=== PATIENT | male | born 1950 | race Hispanic/Latino ===

== ENCOUNTER 2017-01-03 16:25 | Inpatient (IN) | payer MEDICARE, OTHER ==
[2017-01-03 16:34] VITALS: BMI 20.7
[2017-01-03] MEDS ORDERED: Sodium Chloride 0.9% 1,000 ML IV STA ×3 (17:02→22:16)
--- NOTE | 2017-01-03 17:11 | ED PDOC ---
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 Patient states his symptoms worsened today causing him to come in for further evaluation. Patient reports sleeping all day which is unlike him and feeling very weak and lightheaded causing him to almost fall when walking to the bathroom. Patient currently notes mild dizziness and chronic pain to the right hip and sacral area (due to the cancer). Patient reports taking Methadone prior to arrival, with mild relief. Patient denies any injuries, loss of consciousness, headache, visual changes, fever, chills, diarrhea, abdominal pain , chest pain, shortness of breath or any other complaints. He notes he was recently discharged form [facility] on 11/22/16. PMD: Dr. Mera Oncologist: Cyndy Allen from [facility] Time/Duration: Other (few days) Symptom Course: Worsening (today) Quality: Other Context: Home Past Medical History - Provider Review Nursing Documentation Reviewed: Yes - Infectious Disease Hx of Infectious Diseases: None - Cardiac Hx Cardiac Disorders: Yes Other/Comment: 3 stents in heart - Pulmonary Hx Respiratory Disorders: No - Neurological Hx Neurological Disorder: No - HEENT Hx HEENT Disorder: No - Renal Hx Renal Disorder: Yes Other/Comment: wears condom cath at night due to NEOBLADDER - Endocrine/Metabolic Hx Endocrine Disorders: No - Hematological/Oncological Hx Blood Disorders: Yes Hx Cancer: Yes (bladder CA with mets to bone/liver) - Integumentary Hx Dermatological Disorder: No - Musculoskeletal/Rheumatological Hx Musculoskeletal Disorders: Yes Other/Comment: CANCER METS TO BONE - Gastrointestinal Hx Gastrointestinal Disorders: Yes Hx Gastroesophageal Reflux: Yes Other/Comment: CANCER METS TO LIVER - Genitourinary/Gynecological Hx Genitourinary Disorders: No - Psychiatric Hx Psychophysiologic Disorder: No Hx Substance Use: No - Surgical History Hx Orthopedic Surgery: Yes (b.l knees) Other/Comment: R chest port. NEOBLADDER sx after cystectomy - Anesthesia Hx Anesthesia: Yes Hx Anesthesia Reactions: No Family/Social History - Physician Review Nursing Documentation Reviewed: Yes Family/Social History: No Known Family HX Smoking Status: Never Smoked Hx Alcohol Use: No Hx Substance Use: No Allergies/Home Meds Allergies/Adverse Reactions: Allergies No Known Allergies Allergy (Verified 01/03/17 16:34) Home Medications: Home Meds Medication Instructions Recorded Confirmed Aspirin [Adult Low Dose Aspirin EC] 1 tab PO DAILY 01/03/17 01/03/17 Atorvastatin Calcium [Lipitor] 1 tab PO DAILY 01/03/17 01/03/17 Bisacodyl [Correctol] 10 mg RC DAILY 01/03/17 01/03/17 Dexamethasone [Decadron] 4 mg PO TID 01/03/17 01/03/17 Enoxaparin [Lovenox] 100 mg SC DAILY 01/03/17 01/03/17 Esomeprazole Sodium [Nexium I.v] 40 mg PO DAILY 01/03/17 01/03/17 HYDROmorphone [Dilaudid] 4 mg PO Q4H 01/03/17 01/03/17 HYDROmorphone [Dilaudid] 8 mg PO Q4H 01/03/17 01/03/17 Lactulose [Generlac] 30 ml PO Q6H 01/03/17 01/03/17 Methadone [Methadone] 5 mg PO BID 01/03/17 01/03/17 Methylphenidate HCl [Ritalin] 1 tab PO BID 01/03/17 01/03/17 Ondansetron HCl [Zofran] 8 mg PO TID 01/03/17 01/03/17 Polyethylene Glycol 3350 [Miralax] 17 gm PO DAILY 01/03/17 01/03/17 Sennosides [Senna] 1 tab PO DAILY 01/03/17 01/03/17 Review of Systems - Physician Review All systems were reviewed & negative as marked: Yes - Review of Systems Constitutional: Fatigue. absent: Fevers, Night Sweats Eyes: absent: Vision Changes Respiratory: absent: SOB Cardiovascular: absent: Chest Pain Gastrointestinal: Nausea, Vomiting. absent: Abdominal Pain, Diarrhea Musculoskeletal: Other (Chronic pain to right hip sacral area, caused by cancer) Neurological: Dizziness. absent: Headache Physical Exam Vital Signs Reviewed: Yes Vital Signs Temp Pulse Resp BP Pulse Ox 01/03/17 16:32 98.1 F 100 H 20 99/64 L 95 Temperature: Afebrile Blood Pressure: Hypotensive Pulse: Tachycardic Respiratory Rate: Normal Appearance: Positive for: Cachectic Mental Status: Positive for: other (weak, drowsy but easily arousable) - Systems Exam Head: Present: Atraumatic, Normocephalic Pupils: Present: PERRL Extroacular Muscles: Present: EOMI Conjunctiva: Present: Normal Mouth: Present: Moist Mucous Membranes Neck: Present: Normal Range of Motion Respiratory/Chest: Present: Clear to Auscultation, Good Air Exchange. No: Respiratory Distress, Accessory Muscle Use Cardiovascular: Present: Regular Rate and Rhythm, Normal S1, S2. No: Murmurs Abdomen: Present: Normal Bowel Sounds. No: Tenderness, Distention, Peritoneal Signs Genitourinary Male: Present: Other (lagunas bag in place, yellow urine noted) Back: Present: Normal Inspection Upper Extremity: Present: Normal Inspection. No: Cyanosis, Edema Lower Extremity: Present: NORMAL PULSES, Tenderness (Right sacral area and hip tenderness, worse with movement). No: Edema, CALF TENDERNESS Neurological: Present: GCS=15, CN II-XII Intact, Speech Normal Skin: Present: Warm, Dry, Normal Color. No: Rashes Psychiatric: Present: Oriented x 3, Other (drowsy but easily arousable and answers questions appropriately) Medical Decision Making ED Course and Treatment: 01/03/17 17:11 Impression: A 66 year old male with persistent nausea and vomiting. Patient notes mild dizziness and chronic pain to right hip sacral area. Differential Diagnosis included but are not limited to: Hypovolemia/near syncope secondary to Sepsis vs. Cardiac vs. Dehydration vs. Failure to Thrive Plan: -- Chest xray -- EKG -- Labs -- Blood and Urine culture -- Urinalysis -- Zorfan and IV fluids -- Reassess and disposition Progress Notes: Family requests transfer to [facility]. 01/03/17 18:42 I p[address] their PMD Dr. Cyndy Hendrix from [facility] [place] but have not received a call back. and daughter agree at this point to admit to [place] under Dr. Solis's who admits under Dr. English. Blood pressure is improving at 100/61. Patient is comfortable. I discussed this case with Dr. English who will accept the case to Telemetry. 01/03/17 18:53 I received a call from Dr. Tomlinson, covering for Dr. Cyndy Hendrix, [facility]. He will be returning the call with a plan for transfer. He needs to speak to Dr. Hendrix. 01/03/17 18:[address] Jansen to f/u call back from Dr. Tomlinson for possible transfer to [facility]. - Critical Care Critical Care Minutes: 30 minutes - Lab Interpretations Lab Results: 01/03/17 17:50 01/03/17 17:50 Lab Results 01/03/17 18:05: Urine Color Yellow, Urine Appearance Sl cloudy, Urine pH 6.5, Ur Specific [place] 1.015, Urine Protein 30 H, Urine Glucose (UA) Negative, Urine Ketones Negative, Urine Blood Moderate H, Urine Nitrate Negative, Urine Bilirubin Negative, Urine Urobilinogen 0.2, Ur Leukocyte Esterase Large H, Urine RBC 10 - 15, Urine WBC Tntc, Urine Bacteria Few 01/03/17 17:55: pO2 71 H, VBG pH 7.41, VBG pCO2 33.0 L, VBG HCO3 20.9 L, VBG Total CO2 21.9 L, VBG O2 Sat (Calc) 95.4 H, VBG Base Excess -2.9 L, VBG Potassium 4.3, Glucose 100, Lactate 2.1, FiO2 21.0, Sodium 137.0, Chloride 107.0 , Venous Blood Potassium 4.3 01/03/17 17:50: Sodium 137, Potassium 4.3, Chloride 106, Carbon Dioxide 21, Anion Gap 14, BUN 54 H, Creatinine 1.5 H, Est GFR ( Amer) 57, Est GFR ( Non-Af Amer) 47, Random Glucose 96, Calcium 9.0, Phosphorus 3.2, Magnesium 1.9, Total Bilirubin 0.8, AST 43, ALT 79 H, Alkaline Phosphatase 570 H, Troponin I 0.02, Total Protein 6.5, Albumin 3.2, Globulin 3.3, Albumin/Globulin Ratio 1.0 L 01/03/17 17:50: PT 11.7, INR 1.08, APTT 30.6 01/03/17 17:50: WBC 13.5 H, RBC 3.83, Hgb 10.5 L, Hct 31.7 L, MCV 82.8, MCH 27.4 , MCHC 33.1, RDW 19.5 H, Plt Count 217, MPV 10.8, Gran % 94.8 H, Lymph % (Auto) 1.5 L, [place] % (Auto) 3.6, Eos % (Auto) 0.0 L, Baso % (Auto) 0.1, Gran # 12.80 H , Lymph # 0.2 L, [place] # 0.5, Eos # 0.0, Baso # 0.01, Neutrophils % (Manual) Pending, Lymphocytes % (Manual) Pending, Monocytes % (Manual) Pending I have reviewed the lab results: Yes - RAD Interpretation Radiology Orders: 01/03/17 17:00 CHEST PORTABLE [RAD] Stat - Medication Orders Current Medication Orders: Acetaminophen (Tylenol 325mg Tab) 650 mg PO Q4H PRN PRN Reason: Fever >100.5 F Piperacillin Sod/Tazobactam Sod (Zosyn 4.5 Gm In Ns 100ml) 4.5 gm in 100 mls @ 200 mls/hr IVPB STAT STA PRN Reason: Protocol Stop: 01/03/17 18:47 Vancomycin HCl (Vancomycin 1gm) 1 gm in 250 mls @ 167 mls/hr IVPB STAT STA PRN Reason: Protocol Stop: 01/03/17 20:00 Sodium Chloride (Sodium Chloride 0.9%) 1,000 mls @ 999 mls/hr IV .Q1H1M STA Stop: 01/03/17 19:38 Ondansetron HCl (Zofran Inj) 4 mg IVP Q4H PRN PRN Reason: Nausea/Vomiting Discontinued Medications Sodium Chloride (Sodium Chloride 0.9%) 1,000 mls @ 999 mls/hr IV .Q1H1M STA Stop: 01/03/17 18:02 Last Admin: 01/03/17 18:03 Dose: 999 mls/hr Ondansetron HCl (Zofran Inj) 4 mg IVP STAT STA Stop: 01/03/17 17:04 Last Admin: 01/03/17 18:03 Dose: 4 mg - Scribe Statement The provider has reviewed the documentation as recorded by the Scribe Paty Ocampo Provider John Attestation: All medical record entries made by the Anaidibvenkatesh were at my direction and personally dictated by me. I have reviewed the chart and agree that the record accurately reflects my personal performance of the history, physical exam, medical decision making, and the department course for this patient. I have also personally directed, reviewed, and agree with the discharge instructions and disposition. Disposition/Present on Arrival - Present on Arrival Any Indicators Present on Arrival: No History of DVT/PE: No History of Uncontrolled Diabetes: No Urinary Catheter: No History of Decub. Ulcer: No History Surgical Site Infection Following: None - Disposition Have Diagnosis and Disposition been Completed?: Yes Diagnosis: Sepsis, UTI (urinary tract infection) Disposition Time: 18:59 Condition: SERIOUS Discharge Instructions (ExitCare): Sepsis (ED) Referrals: PCP,NO [Primary Care Provider] - Follow up with primary Forms: [facility] (Greek)
[2017-01-03 17:59] LABS: VENOUS BLOOD GAS BASE EXCESS -2.9 mmol/L (0.0-2.0); VENOUS BLOOD PH 7.41 (7.32-7.43)
[2017-01-03 18:04] LABS: BASO # 0.01 K/mm3 (0.0-2.0); BASO % 0.1 % (0.0-3.0); GRAN % 94.8 % (50.0-68.0); HEMATOCRIT 31.7 % (42.0-52.0); LYMPH # 0.2 (1.2-3.4); LYMPH % 1.5 % (22.0-35.0); MEAN CELL VOLUME 82.8 fl (80.0-105.0); MEAN CORPUSCULAR HEMOGLOBIN 27.4 pg (25.0-35.0); MEAN CORPUSCULAR HGB CONC 33.1 g/dl (31.0-37.0); MEAN PLATELET VOLUME 10.8 fl (7.0-11.0); MONO # 0.5 (0.1-0.6); MONO % 3.6 % (1.0-6.0); PLATELET COUNT 217 10^3/uL (120.0-450.0); RED CELL DISTRIBUTION WIDTH 19.5 % (11.5-14.5); WHITE BLOOD COUNT 13.5 10^3/ul (4.5-11.0)
[2017-01-03 18:13] LABS: BILIRUBIN,TOTAL 0.8 mg/dL (0.2-1.3); MAGNESIUM 1.9 mg/dL (1.7-2.2); PHOSPHOROUS 3.2 mg/dL (2.5-4.5); POTASSIUM 4.3 mmol/L (3.6-5.0); TOTAL PROTEIN 6.5 g/dL (5.8-8.3)
[2017-01-03] MEDS ORDERED: Piperacill/Tazo 4.5gm in NS 4.5 GM/100 ML BAG IVPB STA (18:18)
[2017-01-03 18:23] LABS: PH,URINE 6.5 (4.7-8.0); URINE BILIRUBIN NEGATIVE (NEGATIVE); URINE BLOOD MODERATE (NEGATIVE); URINE GLUCOSE (UA) NEGATIVE (NEGATIVE); URINE KETONE NEGATIVE (NEGATIVE); URINE LEUKOCYTE ESTERASE LARGE Leu/uL (NEGATIVE); URINE PROTEIN 30 mg/dL (<30 mg/dL); URINE UROBILINOGEN 0.2 E.U./dL (<1 E.U./dL)
[2017-01-03 18:24] LABS: TROPONIN I 0.02 ng/mL
[2017-01-03 18:30] LABS: INR 1.08 (0.93-1.08); PARTIAL THROMBOPLASTIN TIME 30.6 Seconds (23.7-30.8)
[2017-01-03] MEDS ORDERED: Vancomycin 1gm in NS 250ml 1 GM/250 ML BAG IVPB STA (18:31)
[2017-01-03 18:33] LABS: URINE APPEARANCE SL CLOUDY (CLEAR); URINE COLOR YELLOW (YELLOW)
[2017-01-03 18:37] LABS: URINE WBC TNTC /hpf (0-6)
[2017-01-03 18:38] LABS: URINE BACTERIA FEW (NEG)
[2017-01-03 18:59] LABS: BAND 1 % (0-2); NEUTROPHIL 96 % (50.0-70.0)
[2017-01-03 19:00] LABS: ANISOCYTOSIS SLIGHT; HYPOCHROMIA SLIGHT; OVALOCYTES SLIGHT; PLATELET ESTIMATE NORMAL (NORMAL)
--- NOTE | 2017-01-03 19:04 | RAD ---
HISTORY: Sepsis Patient . Technique: Single view portable semi erect @ 17:19. COMPARISON: No prior. FINDINGS: LUNGS: No active pulmonary disease. PLEURA: No significant pleural effusion identified, no pneumothorax apparent. CARDIOVASCULAR: Normal. OSSEOUS STRUCTURES: No significant abnormalities. VISUALIZED UPPER ABDOMEN: Normal. OTHER FINDINGS: None. IMPRESSION: No active disease.
--- NOTE | 2017-01-03 19:48 | ED PDOC ---
Physical Exam Vital Signs Temp Pulse Resp BP Pulse Ox 01/03/17 22:40 62 18 101/65 97 01/03/17 20:26 98 F 01/03/17 20:25 65 18 101/62 99 01/03/17 18:40 98.0 F 80 18 103/65 95 01/03/17 16:32 98.1 F 100 H 20 99/64 L 95 Temperature: Afebrile Blood Pressure: Normal Pulse: Tachycardic Respiratory Rate: Normal Appearance: Positive for: Non-Toxic Pain Distress: None Mental Status: Positive for: Alert and Oriented X 3 Medical Decision Making ED Course and Treatment: 01/03/17 19:00 Case endorsed to me by , pending disposition. Patient is a 66 year old male who presents to the emergency department complaining of nausea and vomiting for past few days. discussed the case with from [facility], who will call back regarding the treatment plan. 01/03/17 21:35 I discussed the case with patient's oncologist who recommends to admit patient to [facility]. Discussed case with who is aware and accepts patient under his service. Case discussed with Information Assurance Officer, , who will evaluate patient for ICU admit. 01/03/17 22:13 Patient evaluated by exhauster engineer, recommends that patient is not ICU candidate. Will admit patient to telemetry for Sepsis. - Lab Interpretations Lab Results: 01/03/17 17:50 01/03/17 17:50 Lab Results 01/03/17 20:58: pO2 48, VBG pH 7.28 L, VBG pCO2 45.0, VBG HCO3 21.1, VBG Total CO2 22.5, VBG O2 Sat (Calc) 81.1 H, VBG Base Excess -5.6 L, VBG Potassium 4.2, Glucose 96, Lactate 1.6, FiO2 21.0, Sodium 138.0, Chloride 110.0 H, Venous Blood Potassium 4.2 01/03/17 18:05: Urine Color Yellow, Urine Appearance Sl cloudy, Urine pH 6.5, Ur Specific [place] 1.015, Urine Protein 30 H, Urine Glucose (UA) Negative, Urine Ketones Negative, Urine Blood Moderate H, Urine Nitrate Negative, Urine Bilirubin Negative, Urine Urobilinogen 0.2, Ur Leukocyte Esterase Large H, Urine RBC 10 - 15, Urine WBC Tntc, Urine Bacteria Few 01/03/17 17:55: pO2 71 H, VBG pH 7.41, VBG pCO2 33.0 L, VBG HCO3 20.9 L, VBG Total CO2 21.9 L, VBG O2 Sat (Calc) 95.4 H, VBG Base Excess -2.9 L, VBG Potassium 4.3, Glucose 100, Lactate 2.1, FiO2 21.0, Sodium 137.0, Chloride 107.0 , Venous Blood Potassium 4.3 01/03/17 17:50: Procalcitonin 8.70 H 01/03/17 17:50: Sodium 137, Potassium 4.3, Chloride 106, Carbon Dioxide 21, Anion Gap 14, BUN 54 H, Creatinine 1.5 H, Est GFR ( Amer) 57, Est GFR ( Non-Af Amer) 47, Random Glucose 96, Calcium 9.0, Phosphorus 3.2, Magnesium 1.9, Total Bilirubin 0.8, AST 43, ALT 79 H, Alkaline Phosphatase 570 H, Troponin I 0.02, Total Protein 6.5, Albumin 3.2, Globulin 3.3, Albumin/Globulin Ratio 1.0 L 01/03/17 17:50: PT 11.7, INR 1.08, APTT 30.6 01/03/17 17:50: WBC 13.5 H, RBC 3.83, Hgb 10.5 L, Hct 31.7 L, MCV 82.8, MCH 27.4 , MCHC 33.1, RDW 19.5 H, Plt Count 217, MPV 10.8, Gran % 94.8 H, Lymph % (Auto) 1.5 L, [place] % (Auto) 3.6, Eos % (Auto) 0.0 L, Baso % (Auto) 0.1, Gran # 12.80 H , Lymph # 0.2 L, [place] # 0.5, Eos # 0.0, Baso # 0.01, Neutrophils % (Manual) 96 H , Band Neutrophils % 1, Lymphocytes % (Manual) 2 L, Monocytes % (Manual) 1, Platelet Evaluation Normal, Hypochromasia Slight, Anisocytosis (manual) Slight, Ovalocytes Slight - RAD Interpretation Radiology Orders: 01/03/17 17:00 CHEST PORTABLE [RAD] Stat - Medication Orders Current Medication Orders: Acetaminophen (Tylenol 325mg Tab) 650 mg PO Q4H PRN PRN Reason: Fever >100.5 F Sodium Chloride (Sodium Chloride 0.9%) 1,000 mls @ 100 mls/hr IV .Q10H STA Stop: 01/04/17 08:15 Last Admin: 01/03/17 22:27 Dose: 100 mls/hr Vancomycin HCl (Vancomycin 1gm) 1 gm in 250 mls @ 167 mls/hr IVPB Q12H MARCELO PRN Reason: Protocol Last Admin: 01/03/17 22:35 Dose: Piperacillin Sod/Tazobactam Sod (Zosyn 3.375 In Ns 100ml) 100 mls @ 200 mls/hr IVPB Q6 MARCELO PRN Reason: Protocol Stop: 01/04/17 06:29 Ondansetron HCl (Zofran Inj) 4 mg IVP Q4H PRN PRN Reason: Nausea/Vomiting Discontinued Medications Sodium Chloride (Sodium Chloride 0.9%) 1,000 mls @ 999 mls/hr IV .Q1H1M STA Stop: 01/03/17 18:02 Last Admin: 01/03/17 18:03 Dose: 999 mls/hr Piperacillin Sod/Tazobactam Sod (Zosyn 4.5 Gm In Ns 100ml) 4.5 gm in 100 mls @ 200 mls/hr IVPB STAT STA PRN Reason: Protocol Stop: 01/03/17 18:47 Last Admin: 01/03/17 18:48 Dose: 200 mls/hr Vancomycin HCl (Vancomycin 1gm) 1 gm in 250 mls @ 167 mls/hr IVPB STAT STA PRN Reason: Protocol Stop: 01/03/17 20:00 Last Admin: 01/03/17 19:44 Dose: 167 mls/hr Sodium Chloride (Sodium Chloride 0.9%) 1,000 mls @ 999 mls/hr IV .Q1H1M STA Stop: 01/03/17 19:38 Last Admin: 01/03/17 19:48 Dose: 999 mls/hr Ondansetron HCl (Zofran Inj) 4 mg IVP STAT STA Stop: 01/03/17 17:04 Last Admin: 01/03/17 18:03 Dose: 4 mg Disposition/Present on Arrival - Present on Arrival Any Indicators Present on Arrival: No History of DVT/PE: No History of Uncontrolled Diabetes: No Urinary Catheter: No History of Decub. Ulcer: No History Surgical Site Infection Following: None - Disposition Have Diagnosis and Disposition been Completed?: Yes Diagnosis: Sepsis, UTI (urinary tract infection) Disposition: HOSPITALIZED Disposition Time: 22:15 Patient Problems: Current Active Problems Problem Status Onset Sepsis Acute UTI (urinary tract infection) Acute Condition: SERIOUS
[2017-01-03 21:10] LABS: VENOUS BLOOD GAS BASE EXCESS -5.6 mmol/L (0.0-2.0); VENOUS BLOOD PH 7.28 (7.32-7.43)
[2017-01-03] MEDS: Vancomycin 1gm in NS 250ml 1 GM/250 ML BAG IVPB SCH (22:35)
[2017-01-03] MEDS ORDERED: HYDROmorphone 1 mg/ml ISec IVP PRN (23:01)
--- NOTE | 2017-01-03 23:36 | PCM.SEPTIC ---
Sepsis Progress Note - Reassessment Type Date of Evaluation: 01/03/17 Time of Evaluation: 22:23 Reassessment Type: Non-invasive reassessment - Non Invasive Reassessment Were the most recent vital sign reviewed: Yes Vital Sign (Latest): Temp Pulse Resp BP Pulse Ox 98 F 62 18 101/65 97 01/03/17 20:26 01/03/17 22:40 01/03/17 22:40 01/03/17 22:40 01/03/17 22:40 Cardiovascular: Yes: Regular Rate, Rhythm Respiratory: Yes: Normal Breath Sounds Capillary Refill: Normal (Less than 2 sec) Skin: Warm, Dry
[2017-01-04] MEDS: Piperacillin/Tazobact 3.375 gm 100 ML IVPB SCH ×2 (00:12→05:30)
--- NOTE | 2017-01-04 00:48 | CP.PCM.CON ---
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 Patient reports sleeping all day which is unlike him and feeling very weak and lightheaded. Per he has had previous episodes similar to this however today he is able to take an fluids or his medications. Patient reports lower back pain and mild right sided abdominal pain. He states that the dizziness, and nausea has improved while in the ED. Per patient had 1 episode of diarrhea yesterday. Patient denies any trauma, loss of consciousness , headache, visual changes, fever, chills, in, chest pain, shortness of breath or any other complaints. Patient was recently discharged from [facility] on 11/22/16 for pain, no infection. PMH: bladder cancer with metastasis to hip and liver, anemia. PSH: 3 cardiac stents, right chest port, neobladder sx, s/p cystectomy social hx: denies smoking, alcohol use, medical marijuana use allergy: NKDA PMD: Dr. Mera Oncologist: Cyndy Allen from [facility] Review of Systems - Constitutional Constitutional: Lethargy, Weakness. absent: Fever, Headache - EENT Eyes: absent: Change in Vision Nose/Mouth/Throat: absent: Nasal Congestion, Sore Throat - Cardiovascular Cardiovascular: absent: Chest Pain, Claudication, Dyspnea, Palpitations, Syncope - Respiratory Respiratory: absent: Cough, Dyspnea, Hemoptysis - Gastrointestinal Gastrointestinal: Abdominal Pain (right sided), Diarrhea, Nausea, Vomiting. absent: Constipation - Genitourinary Genitourinary: absent: Change in Urinary Stream, Difficulty Urinating, Dysuria, Hematuria - Musculoskeletal Musculoskeletal: Back Pain. absent: Muscle Weakness, Numbness, Tingling - Integumentary Integumentary: absent: Skin Pain, Skin Ulcer, Swelling, Wounds, Jaundice - Neurological Neurological: Weakness. absent: Dizziness, Numbness, Headaches, Loss of Vision , Syncope - Hematologic/Lymphatic Hematologic: absent: Easy Bleeding, Easy Bruising Past Patient History - Infectious Disease Hx of Infectious Diseases: None - Past Social History Smoking Status: Never Smoked Alcohol: None Drugs: Cannabis - CARDIAC Hx Cardiac Disorders: Yes Hx Hypercholesterolemia: Yes Hx Hypertension: Yes Other/Comment: 3 stents in heart - PULMONARY Hx Respiratory Disorders: No - NEUROLOGICAL Hx Neurological Disorder: No - HEENT Hx HEENT Problems: No - RENAL Hx Chronic Kidney Disease: No - ENDOCRINE/METABOLIC Hx Endocrine Disorders: No - HEMATOLOGICAL/ONCOLOGICAL Hx Blood Disorders: Yes Hx Cancer: Yes (bladder CA with mets to bone/liver) - INTEGUMENTARY Hx Dermatological Problems: No - MUSCULOSKELETAL/RHEUMATOLOGICAL Hx Musculoskeletal Disorders: Yes Hx Falls: Yes - GASTROINTESTINAL Hx Gastrointestinal Disorders: Yes Hx Gastroesophageal Reflux: Yes - GENITOURINARY/GYNECOLOGICAL Hx Genitourinary Disorders: Yes Other/Comment: wears condom cath at night due to NEOBLADDER - PSYCHIATRIC Hx Psychophysiologic Disorder: No Hx Emotional Abuse: No Hx Physical Abuse: No Hx Sexual Abuse: No - SURGICAL HISTORY Hx Surgeries: Yes Hx Orthopedic Surgery: Yes (b.l knees) Other/Comment: R chest port. Badder removed in January 2015. Herniography 2016. NEOBLADDER sx after cystectomy - ANESTHESIA Hx Anesthesia: Yes Hx Anesthesia Reactions: No Meds Allergies/Adverse Reactions: Allergies Allergy/AdvReac Type Severity Reaction Status Date / Time No Known Allergies Allergy Verified 01/03/17 16:34 - Medications Medications: Current Medications Acetaminophen (Tylenol 325mg Tab) 650 mg PO Q4H PRN PRN Reason: Fever >100.5 F Hydromorphone HCl (Dilaudid) 1 mg IVP Q4H PRN PRN Reason: Pain, moderate (4-7) Sodium Chloride (Sodium Chloride 0.9%) 1,000 mls @ 100 mls/hr IV .Q10H STA Stop: 01/04/17 08:15 Last Admin: 01/03/17 22:27 Dose: 100 mls/hr Vancomycin HCl (Vancomycin 1gm) 1 gm in 250 mls @ 167 mls/hr IVPB Q12H MARCELO PRN Reason: Protocol Last Admin: 01/03/17 22:35 Dose: Not Given Piperacillin Sod/Tazobactam Sod (Zosyn 3.375 In Ns 100ml) 100 mls @ 200 mls/hr IVPB Q6 MARCELO PRN Reason: Protocol Stop: 01/04/17 06:29 Last Admin: 01/04/17 00:12 Dose: 200 mls/hr Ondansetron HCl (Zofran Inj) 4 mg IVP Q4H PRN PRN Reason: Nausea/Vomiting Physical Exam - Constitutional Appears: No Acute Distress, Cachectic, Chronically Ill - Head Exam Head Exam: ATRAUMATIC, NORMAL INSPECTION, NORMOCEPHALIC - Eye Exam Eye Exam: EOMI, Normal appearance - ENT Exam ENT Exam: Mucous Membranes Moist - Respiratory Exam Respiratory Exam: Clear to Auscultation Bilateral, NORMAL BREATHING PATTERN. absent: Decreased Breath Sounds, Rales, Rhonchi, Wheezes, Respiratory Distress - Cardiovascular Exam Cardiovascular Exam: REGULAR RHYTHM, +S1, +S2. absent: Tachycardia, Diastolic murmur, Systolic Murmur - GI/Abdominal Exam GI & Abdominal Exam: Normal Bowel Sounds, Soft, Tenderness. absent: Distended, Firm, Guarding - Extremities Exam Extremities exam: Positive for: normal inspection. Negative for: pedal edema - Neurological Exam Neurological exam: Alert, Oriented x3 - Skin Skin Exam: Dry, Intact, Normal Color, Warm Results - Vital Signs Recent Vital Signs: Last Vital Signs Temp 98 F 01/03/17 20:26 Pulse 62 01/03/17 22:40 Resp 18 01/03/17 22:40 BP 101/65 01/03/17 22:40 Pulse Ox 97 01/03/17 22:40 - Labs Result Diagrams: 01/03/17 17:50 01/03/17 17:50 Assessment & Plan - Assessment and Plan (Free Text) Assessment: 66 year old male with PMH of bladder cancer with metastasis to hip and liver, last chemotherapy approximately 2-3 months ago this past September/October, anemia and 3 cardiac stents presents with fatigue, general weakness, nausea and vomiting found to have sepsis secondary to UTI. Vital signs are stable, near baseline, lactate is mildly elevated, repeat is decreased, patient does not require ICU admission at this time. Recommend admission to hospital for continuing treatment , continue IV fluids, and IV antibiotics. Follow up urine cultures. Consider CT abd/pelvis if patient develops fever. <Otis Moody Q - Last Filed: 01/04/17 01:34> Meds - Medications Medications: Current Medications Acetaminophen (Tylenol 325mg Tab) 650 mg PO Q4H PRN PRN Reason: Fever >100.5 F Hydromorphone HCl (Dilaudid) 1 mg IVP Q4H PRN PRN Reason: Pain, moderate (4-7) Sodium Chloride (Sodium Chloride 0.9%) 1,000 mls @ 100 mls/hr IV .Q10H STA Stop: 01/04/17 08:15 Last Admin: 01/03/17 22:27 Dose: 100 mls/hr Vancomycin HCl (Vancomycin 1gm) 1 gm in 250 mls @ 167 mls/hr IVPB Q12H MARCELO PRN Reason: Protocol Last Admin: 01/03/17 22:35 Dose: Not Given Piperacillin Sod/Tazobactam Sod (Zosyn 3.375 In Ns 100ml) 100 mls @ 200 mls/hr IVPB Q6 MARCELO PRN Reason: Protocol Stop: 01/04/17 06:29 Last Admin: 01/04/17 00:12 Dose: 200 mls/hr Ondansetron HCl (Zofran Inj) 4 mg IVP Q4H PRN PRN Reason: Nausea/Vomiting Results - Vital Signs Recent Vital Signs: Last Vital Signs Temp 98.6 F 01/04/17 00:23 Pulse 42 L 01/04/17 00:23 Resp 20 01/04/17 00:23 BP 106/62 01/04/17 00:23 Pulse Ox 97 01/03/17 22:40 - Labs Result Diagrams: 01/03/17 17:50 01/03/17 17:50 Attending/Attestation - Attestation I have personally seen and examined this patient.: Yes I have fully participated in the care of the patient.: Yes I have reviewed all pertinent clinical information: Yes Notes (Text): 01/04/17 01:25 I agree with the above mentioned note and exam by the resident Asked to evaluate the patient for possible ICU admission due to code sepsis. Patient responded appropriately to IV Fluids and IV Abx. Likely septic secondary to acute cystitis; has a neobladder constructed due to bladder cancer. He does not require aggressive ICU level care at this time and is suitable to be admitted to the medical floor with IV fluids and IV antibiotics. Case discussed with Dr. Jansen in the ED labd and images available to me thus far have been reviewed total time of care: 35 minutes
[2017-01-04] MEDS: Pantoprazole 40 mg EC Tab PO SCH (09:41)
[2017-01-04] MEDS: POLYETHYLENE GLYCOL 3350 17 GM/Dose PACKET PO SCH (09:42)
[2017-01-04] MEDS: Enoxaparin 100 mg Syringe SC SCH (09:42)
--- NOTE | 2017-01-04 10:04 | CARD ---
APPROVED REPORT EKG Measurement Heart [id number] CT 180P-7 [id number] <Conclusion> Normal sinus rhythm Left axis deviation
[2017-01-04] MEDS: Vancomycin 1gm in NS 250ml 1 GM/250 ML BAG IVPB SCH ×3 (11:32→22:14)
[2017-01-04] MEDS: Piperacillin/Tazobact 2.25gm 2.25 GM/100 ML BAG IVPB SCH ×2 (14:20→19:08)
--- NOTE | 2017-01-04 18:17 | HP ---
HISTORY OF PRESENT ILLNESS: A 66-year-old white male admitted through the ER with some change in mental status issues and having had urosepsis, chronic renal insufficiency, history of metastatic prostate cancer with bone metastasis, chronic right back and flank pain, on Dilaudid and methadone, and also on stool softeners and cathartics. The patient was admitted and was treated, had drop in his blood pressure and early sepsis syndrome. The patient was treated with IV antibiotics in the ER and transferred to the floor. He is awaiting transfer to [facility] where his oncologist resides, awaiting for a bed to be open. Temperature this morning is 98.1 and blood pressure is 115/61. White count is 13,500. BUN and creatinine are 54 and 1.5, which is stable in his previous and the patient is on IV antibiotics. PHYSICAL EXAMINATION: GENERAL: Shows a poorly-developed cachectic white male in 3/10 pain. VITAL SIGNS: Stable. CHEST: Clear to auscultation. HEART: Reveals sinus rhythm. EXTREMITIES: Without cyanosis, clubbing, or edema. NEUROLOGIC: Grossly intact. UROLOGIC: The patient does urinate on his own, but does use a condom catheter at night because of leaking. He states that his urine have been cloudy in the last several days. IMPRESSION AND PLAN: This is a 66-year-old white male with widely metastatic prostate cancer and urosepsis and change in mental status and chronic renal insufficiency. Da English MD
[2017-01-04] MEDS ORDERED: Vancomycin 1gm in NS 250ml 1 GM/250 ML BAG IVPB SCH (22:15)
[2017-01-05 08:48] LABS: TROPONIN I 0.02 ng/mL
[2017-01-05] MEDS: Enoxaparin 100 mg Syringe SC SCH (10:20)
[2017-01-05] MEDS: Pantoprazole 40 mg EC Tab PO SCH (10:21)
[2017-01-05] MEDS: POLYETHYLENE GLYCOL 3350 17 GM/Dose PACKET PO SCH (10:22)
[2017-01-05] MEDS: cefTRIAXone 1 gm 1 GM/100 ML BAG IVPB SCH (10:22)
[2017-01-05] MEDS: HYDROmorphone 1 mg/ml ISec IVP PRN ×3 (10:57→21:10)
--- NOTE | 2017-01-05 17:03 | CON ---
DATE: 01/05/2017 CONSULTATION INDICATIONS: Sinus bradycardia, history of CAD and stents. HISTORY OF PRESENT ILLNESS: This is a 66-year-old man with metastatic bladder cancer admitted 01/03/2017 with nausea, weakness, vomiting, altered mental status and lightheadedness. He was admitted to telemetry and during the night it was noted to have sinus bradycardia in the 40s and occasionally into the upper 30s. This was when he was nauseous and vomiting. There was no chest pain, shortness of breath, orthopnea, PND, syncope, vertigo, palpitation, edema, claudication, fever, chills, hemoptysis, abdominal pain, diarrhea, or melena. PAST MEDICAL HISTORY: Complex. He has bladder cancer with metastasis to hip and liver. He is under the care of oncology at [facility]. He has had chemotherapy. His planing a new round of possibly experimental chemotherapy. He was recently admitted to the hospital. Bradycardia was evaluated during that admission.and has been evaluated in ths past. He has had coronary artery disease with coronary stents several years ago. He has cystectomy and neobladder created. He has chronic pain and is on around the clock Dilaudid and methadone. There is no history of diabetes, stroke, TIA, or gout. There is no history of myocardial infarction angina or CHF. He has a history of chronic slow heart rates. He recalls having Holter monitors in the recent and remote past. MEDICATION AT THE TIME OF ADMISSION: Include aspirin, Lipitor, Correctol, Decadron, Lovenox, Nexium, Dilaudid, Lactulose, methadone, Ritalin, Zofran, MiraLax, and Senna. ALLERGIES: THERE ARE NO MEDICATIONS ALLERGIES REPORTED. SOCIAL HISTORY: He lives at home with his . He does not smoke. He does not drink alcohol significantly. REVIEW OF SYSTEMS: A 10-point review of systems is otherwise unremarkable except as noted above. PHYSICAL EXAMINATION: GENERAL: He is a well-developed ill appearing male lying in bed, on telemetry, in no acute distress. VITAL SIGNS: Notable for sinus rhythm to sinus bradycardia currently 56 beats per minute. He is afebrile, blood pressure 137/55, respirations 18 to 20, and O2 sat 98%. HEENT: Reveals no neck vein distention, thyromegaly, or carotid bruits. Mucous membranes are moist. Conjunctivae pink. NECK: Supple. LUNGS: Lung wang clear. HEART: Reveals normal first and second heart sounds. ABDOMEN: Soft. EXTREMITIES: Reveal no cyanosis, clubbing, or edema. NEUROLOGIC: Awake, alert, and oriented. SKIN: Warm and dry. No rashes or cellulitis. LABORATORY AND IMAGING: A chest x-ray revealed. No active disease. EKG demonstrates sinus rhythm with a left axis deviation. Heart rate 75 beats per minute. White count 13,500. Hemoglobin 10.5. Hematocrit 31.7. Platelet count 217,000. PT/INR, and PTT normal. Blood gases are noted. Electrolytes, BUN are noted. Creatinine 1.5. Magnesium 1.9. LFTs mildly elevated. CK 67, troponin 0.02 and 0.02. Procalcitonin 8.7. Urinalysis is abnormal. Urine cultures is positive for Klebsiella pneumoniae. Blood cultures x2 are no growth at 24 hours. IMPRESSION: Andrade Gonzalez is a 66-year-old man with advanced metastatic bladder cancer on chronic pain medications with chronic nausea and vomiting worse recently prompting admission with the severe bout of nausea and vomiting related to adjustment in his pain medications last night. During which time sinus bradycardia with heart rate in a 38 to 45 beat per minute, range were noted. PLAN: At this time, he has in sinus rhythm to sinus bradycardia currently 56 beats per minute. He is still has chronic pain. His nausea has improved. His medications are being adjusted and there is plan to transferred to [facility] for further oncologic management and additional chemotherapy possibly on a new protocol as described by the patient and his . I reviewed his orders, there are no negative chronotropic medications. He has long history of bradycardia. He should be observed on telemetry and transferred on a control room agent. If bradycardia worsens and causes symptoms he might be considered for a pacemaker at that time. In the mean time I would avoid Beta-blockers and negative chronotropic medications and try keep is nausea under control with adequate pain control as well. He has a history of coronary artery disease with remote coronary artery stents. There is no evidence of active ischemia or chest pain, and his troponins are negative. His EKG is benign with regards to the ST-segments. I have discussed his case with Dr. English. The patients was present in the room at the time of my visit. Breezy Sorensen MD [facility] # [id number] KEM
[2017-01-06] MEDS: HYDROmorphone 1 mg/ml ISec IVP PRN ×6 (01:17→21:28)
--- NOTE | 2017-01-06 02:14 | PN ---
SUBJECTIVE: This is a 66-year-old white male with history of metastatic bladder cancer, history of stents x2, history of bradycardia in the past. The patient was admitted with urosepsis, change in mental status. The patient has improved as far as his sepsis. He has grown Klebsiella pneumoniae in his urine.. Blood cultures are negative. He is afebrile. Vital signs are stable; however, the patient was nauseous this morning and had dropped in his heart rate down into the mid 30s, which quickly resolved, and he returned up into the 50 to 60 range. Currently, the patient's heart rate is 100. The patient was seen in consultation this morning with Dr. Sorensen. The patient was noted to have had episodes of bradycardia and arrhythmia in the past that was worked up at [facility] approximately 3 weeks ago. Also, had a Holter monitor placed while in [facility] and also at [facility] approximately 2 years ago and also many years ago by Dr. Sorensen, a custom tailor in [place]. The patient is asymptomatic. His blood pressure had not changed during the bradycardia. The patient had no chest pain. He was asymptomatic. He was found to be retching and nauseous and also complaining of persistent right back pain. The patient has been on methadone and Dilaudid, also on Zofran. The methadone was continued. The Dilaudid dose was reduced because of the chance of worsening bradycardia. Also, the Zofran was held and the patient was given Reglan in place of the Zofran for nausea. Family was advised. PHYSICAL EXAMINATION: GENERAL: Shows a well-developed, thin, cachectic white male, in pain approximately 3-5/10. HEART: Bradycardia. No murmurs. CHEST: Clear to auscultation and percussion. ABDOMEN: Benign. EXTREMITIES: Without cyanosis, clubbing, or edema. NEUROLOGIC: Grossly intact. IMPRESSION: Bradycardia in a 66-year-old white male with a history of wildly metastatic bladder cancer on high dose of pain medication found to be nauseous and retching this morning with drops in his heart rate which have returned to normal. PLAN: As above, change medications. Consultation with Cardiology, cardiac enzymes and close monitoring with telemetry. Da English MD [facility] # [id number]
[2017-01-06 07:20] LABS: GRAN # 9.76 (1.4-6.5); GRAN % 93.4 % (50.0-68.0); HEMATOCRIT 25.3 % (42.0-52.0); LYMPH # 0.3 (1.2-3.4); LYMPH % 2.4 % (22.0-35.0); MEAN CELL VOLUME 81.6 fl (80.0-105.0); MEAN CORPUSCULAR HEMOGLOBIN 27.1 pg (25.0-35.0); MEAN CORPUSCULAR HGB CONC 33.2 g/dl (31.0-37.0); MEAN PLATELET VOLUME 10.8 fl (7.0-11.0); MONO # 0.4 (0.1-0.6); MONO % 4.2 % (1.0-6.0); RED CELL DISTRIBUTION WIDTH 19.4 % (11.5-14.5); WHITE BLOOD COUNT 10.5 10^3/ul (4.5-11.0)
--- NOTE | 2017-01-06 08:09 | CP.PCM.PN ---
Subjective - Date & Time of Evaluation Date of Evaluation: 01/06/17 Time of Evaluation: 07:00 - Subjective Subjective: Stable on 2R. He feels better. He still has pain but it is controlled now w/o nausea at the moment. No CP or SOB. V/S noted. RSR/Sinus Jaime with HR low 40's during the night (some high 30's as well). HR 50-60 now. PE: Lungs: clear Cor.: S1S2 Abd.: soft Ext.: no edema Neuro.: alert I/O= 480/1100 H/H = 8.4/25.3 Objective - Vital Signs/Intake and Output Vital Signs (last 24 hours): Temp Pulse Resp BP Pulse Ox 98.4 F 43 L 20 148/68 96 01/06/17 06:00 01/06/17 06:00 01/06/17 06:00 01/06/17 06:00 01/06/17 06:00 Intake and Output: 01/06/17 01/06/17 06:59 18:59 Intake Total 480 Output Total 1100 Balance -620 - Medications Medications: Current Medications Acetaminophen (Tylenol 325mg Tab) 650 mg PO Q4H PRN PRN Reason: Fever >100.5 F Aspirin (Ecotrin) 81 mg PO DAILY [facility] Last Admin: 01/05/17 10:21 Dose: 81 mg Atorvastatin Calcium (Lipitor) 40 mg PO DAILY [facility] Last Admin: 01/05/17 10:21 Dose: 40 mg Dexamethasone (Decadron) 4 mg PO TID [facility] Last Admin: 01/05/17 17:06 Dose: 4 mg Enoxaparin Sodium (Lovenox) 100 mg SC DAILY [facility] PRN Reason: Protocol Last Admin: 01/05/17 10:20 Dose: 100 mg Hydromorphone HCl (Dilaudid) 1 mg IVP Q4H PRN PRN Reason: Pain, moderate (4-7) Last Admin: 01/06/17 05:30 Dose: 1 mg Ceftriaxone Sodium (Rocephin 1 Gram Ivpb) 1 gm in 100 mls @ 100 mls/hr IVPB DAILY [facility] PRN Reason: Protocol Last Admin: 01/05/17 10:22 Dose: 100 mls/hr Methadone HCl (Methadone) 15 mg PO 0200,1000,1800 [facility] Last Admin: 01/06/17 01:16 Dose: 15 mg Methylphenidate HCl (Ritalin) 5 mg PO BID [facility] Last Admin: 01/05/17 17:07 Dose: 5 mg Metoclopramide HCl (Reglan) 5 mg PO 0600,1130,1630,2200 [facility] Last Admin: 01/06/17 05:30 Dose: 5 mg Pantoprazole Sodium (Protonix Ec Tab) 40 mg PO DAILY [facility] Last Admin: 01/05/17 10:21 Dose: 40 mg Polyethylene Glycol (Miralax) 17 gm PO DAILY [facility] Last Admin: 01/05/17 10:22 Dose: Not Given Sennosides (Senokot Tab) 1 mg PO DAILY [facility] Last Admin: 01/05/17 10:27 Dose: Not Given - Labs Labs: 01/06/17 06:40 PT 11.7 Seconds (9.9-11.8) 01/03/17 17:50 INR 1.08 (0.93-1.08) 01/03/17 17:50 APTT 30.6 Seconds (23.7-30.8) 01/03/17 17:50 Assessment and Plan - Assessment and Plan (Free Text) Assessment: Chronic Pain, Nausea/AMS Urosepsis Marked sinus bradycardia, recent and remote Metastatic bladder cancer (Liver, Bones), s/o chemo and cystectomy with neobladder CKD Plan: Avoid neg. chronotropic meds. Adjust pain meds Await transfer to [facility] for additional oncology treatments. Continue telemetry
[2017-01-06] MEDS: Pantoprazole 40 mg EC Tab PO SCH (10:07)
[2017-01-06] MEDS: POLYETHYLENE GLYCOL 3350 17 GM/Dose PACKET PO SCH (10:08)
[2017-01-06] MEDS: Enoxaparin 100 mg Syringe SC SCH (10:08)
[2017-01-06] MEDS: cefTRIAXone 1 gm 1 GM/100 ML BAG IVPB SCH (10:08)
[2017-01-06 10:58] LABS: IRON 36 ug/dL (45-180)
[2017-01-07 01:10] VITALS: BP 144/78; RESP 19; TEMP 98.4; O2SAT 94
[2017-01-07] MEDS: HYDROmorphone 1 mg/ml ISec IVP PRN (01:37)
[2017-01-07 02:07] VITALS: PULSE 47
--- NOTE | 2017-01-07 06:50 | DS ---
01/06/2017A patient of Dr. English, covering for him. HISTORY OF PRESENT ILLNESS: The patient was admitted on 01/04 with generalized weakness, and he was also found to have altered mental status. A diagnosis was made and he was found to be in urosepsis. PAST MEDICAL HISTORY: 1. Chronic renal insufficiency. 2. History of metastatic prostate cancer with bone mets. 3. Chronic low back pain. He is getting chemotherapy in [place] and he is scheduled to get his chemotherapy, he might be discharged today to receive his scheduled chemotherapy. PHYSICAL EXAMINATION: GENERAL: On examination today, he is awake and alert, able to communicate, answers appropriately. VITAL SIGNS: He is afebrile, pulse 81, respirations 16, and blood pressure 128/79. LUNGS: Bilateral fair airflow. No rhonchi or crackle. HEART: S1 and S2 audible. ABDOMEN: Soft and nontender. No rebound. No guarding. NEUROLOGIC: He is awake and alert, able to communicate and difficulty walking, complained of pain in the right flank and lower back and the right leg. EXTREMITIES: Bilateral leg, no edema. LABORATORY DATA: WBC is 10.5, hemoglobin is 8.4, hematocrit is 25.3, and platelets of 157. Chemistries; his iron 36, TIBC 195, saturation is 18. ASSESSMENT: 1. Status post urosepsis. 2. Metastatic cancer of the prostate with bony metastases. 3. Asymptomatic sinus bradycardia. 4. Metastatic bladder cancer, status post cystectomy with neobladder. 5. Chronic renal insufficiency. PLAN: The patient is currently stable. He is receiving analgesic. He is on DVT prophylaxis. He is getting Rocephin, because his Klebsiella pneumonia UTI is sensitive to Rocephin. That will be continued total of 7 days, and if the bed is available, he will be transferred to [place] today to receive . Juli Bruner MD
== END 2017-01-07 04:30 | disposition short-term general hospital (02) | DRG 872 ==
LOC: ED 16:25 → ERH 18:37 → UNDOADMIN 18:37 → ERH 22:13 → 2RSO 23:11
PROVIDERS: ADMIT Internal Medicine; ATTEND Internal Medicine
DX: A41.9 Sepsis, unspecified organism (principal); R64 Cachexia; C78.7 Secondary malignant neoplasm of liver and intrahepatic bile duct; C79.51 Secondary malignant neoplasm of bone; Z90.6 Acquired absence of other parts of urinary tract; N30.00 Acute cystitis without hematuria; B96.1 Klebsiella pneumoniae [K. pneumoniae] as the cause of diseases classified elsewhere; Z85.51 Personal history of malignant neoplasm of bladder; Z92.21 Personal history of antineoplastic chemotherapy; Z85.46 Personal history of malignant neoplasm of prostate; E78.00 Pure hypercholesterolemia, unspecified; G89.29 Other chronic pain; M54.5 Low back pain; I12.9 Hypertensive chronic kidney disease with stage 1 through stage 4 chronic kidney disease, or unspecified chronic kidney disease; N18.9 Chronic kidney disease, unspecified; I25.10 Atherosclerotic heart disease of native coronary artery without angina pectoris; K21.9 Gastro-esophageal reflux disease without esophagitis; Z95.5 Presence of coronary angioplasty implant and graft; R00.1 Bradycardia, unspecified